=== PATIENT | female | born 1945 | race Caucasian/White ===

== ENCOUNTER → 2016-11-16 | Outpatient (CLI) | payer MEDICARE, OTHER | END | disposition home or self-care (01) | LOC: GMAL 12:48 | PROVIDERS: ATTEND Family Medicine | DX: D51.3 Other dietary vitamin B12 deficiency anemia (principal); D53.9 Nutritional anemia, unspecified; R53.83 Other fatigue; E55.9 Vitamin D deficiency, unspecified ==

== ENCOUNTER 2017-01-23 05:56 | Day surgery (SDC) | payer MEDICARE, OTHER ==
[~2017-01-23 05:56] MED LIST: LACTATED RINGERS 1,000 ML ONE
--- NOTE | 2017-01-23 10:17 | OP ---
DATE OF PROCEDURE: 01/23/17 PREPROCEDURE DIAGNOSIS: 1. Iron deficiency anemia. POSTPROCEDURE DIAGNOSIS: 1. Diverticulosis. PROCEDURE: 1. Colonoscopy. SURGEON: Migel Vazquez MD. SEDATION: Monitored anesthesia care. ESTIMATED BLOOD LOSS: 0 mL. PROCEDURE: Informed consent was obtained prior to sedation. The preprocedure cardiopulmonary assessment was satisfactory. The patient was brought to the Endoscopy Suite and placed in the left lateral decubitus position. She was then sedated by the anesthesia team. Digital rectal exam revealed no abnormalities. The tip of the Olympus colonoscope was inserted into the rectum and advanced under direct visualization to the terminal ileum. The cecum was identified by the presence of the appendiceal orifice and ileocecal valve. Preparation of the colon was excellent. Upon reaching the terminal ileum, the colonoscope was slowly withdrawn from the patient with careful attention paid to the entire colonic mucosa for the identification of any small polyps or flat vascular lesions. The only notable finding in the colon was diverticulosis in the sigmoid colon. The endoscopic was withdrawn to the rectum where a retroflexed view of the anal verge revealed no abnormalities. The endoscope was then withdrawn from the patient and the procedure terminated. RECOMMENDATION: 1. Discharge the patient home with escort. 2. Resume regular activities and normal diet. 3. Continue all present medications. 4. Consider repeat screening colonoscopy in 10 years' time. 5. Followup in my office as needed. #[id number] MTDD
[2017-01-23 11:37] VITALS: O2SAT 98
[2017-01-23 11:42] VITALS: BP 82/46; TEMP 97
[2017-01-23] MEDS ORDERED: PROPOFOL 200 MG/20 ML VIAL IV ONE (12:00)
== END 2017-01-23 11:52 | disposition home or self-care (01) ==
LOC: AMB 05:56
PROVIDERS: ATTEND Internal Medicine Gastroenterology
DX: D50.9 Iron deficiency anemia, unspecified (principal); K57.30 Diverticulosis of large intestine without perforation or abscess without bleeding; I10 Essential (primary) hypertension; M85.80 Other specified disorders of bone density and structure, unspecified site; Z79.899 Other long term (current) drug therapy
CPT/HCPCS: 00810; 45378; J3490; J7120

== ENCOUNTER → 2017-02-04 | Outpatient (CLI) | payer MEDICARE, OTHER ==
--- NOTE | 2017-02-04 15:39 | MAM ---
History: Well woman exam. Date of exam: 02/04/2017 Services provided: Bilateral full field digital screening mammography. CAD, the images were reviewed with R2 computer aided detection. FINDINGS: Glandular tissue is scattered glandular contour with increased mammographic density. Bilateral subglandular implants with fairly extensive capsular calcification. Comparison with 2012 exam. No dominant mass, architectural distortion or clustered microcalcification. IMPRESSION: Benign exam Recommendation: Routine annual mammography BIRAD CATEGORY: 2 BENIGN Electronically signed by: Swapna Fish MD 02/04/2017 3:33 PM CDT
== END | disposition home or self-care (01) ==
LOC: MAMMO 13:06
PROVIDERS: ATTEND Family Medicine
DX: Z12.31 Encounter for screening mammogram for malignant neoplasm of breast (principal)

== ENCOUNTER → 2017-02-20 | Outpatient (CLI) | payer MEDICARE, OTHER | END | disposition home or self-care (01) | LOC: GMAL 17:39 | PROVIDERS: ATTEND Family Medicine | DX: D51.3 Other dietary vitamin B12 deficiency anemia (principal); D53.9 Nutritional anemia, unspecified ==

== ENCOUNTER → 2017-03-06 | Outpatient (CLI) | payer MEDICARE, OTHER | END | disposition home or self-care (01) | LOC: GMA 18:03 | PROVIDERS: ATTEND Nurse Practitioner Family | DX: N30.00 Acute cystitis without hematuria (principal) ==

== ENCOUNTER → 2017-08-21 | Outpatient (CLI) | payer MEDICARE, OTHER | END | disposition home or self-care (01) | LOC: GMAL 14:29 | PROVIDERS: ATTEND Family Medicine | DX: D51.3 Other dietary vitamin B12 deficiency anemia (principal); E55.9 Vitamin D deficiency, unspecified; D53.9 Nutritional anemia, unspecified ==

== ENCOUNTER → 2017-09-02 | Outpatient (CLI) | payer MEDICARE, OTHER | END | disposition home or self-care (01) | LOC: GMA 16:49 | PROVIDERS: ATTEND Physician Assistant | DX: N30.00 Acute cystitis without hematuria (principal) ==

== ENCOUNTER → 2018-02-18 | Outpatient (CLI) | payer MEDICARE, OTHER ==
--- NOTE | 2018-02-20 10:12 | MAM ---
EXAM DESCRIPTION: 3D Screening BILATERAL : Digital Mammography. CLINICAL HISTORY: 73 years Female SCREENING . No complaints. No family history breast cancer. Postmenopausal. Has taken HRT 5 or more years ago. Bilateral breast augmentation.. COMPARISON: 2-D digital screening bilateral study 01/17/2016.. Report from prior examination also reviewed. TECHNIQUE: Bilateral CC and MLO projection full-field images, with Letha Implant Displacement 3-D tomosynthesis digital mammographic technique. Also bilateral synthesized CC/ MLO full-field images. Also with Letha Implant Displacement, CAD not utilized. Bilateral 2-D digital full-field images, MLO and CC projections, non-displaced, with CAD. FINDINGS: The breast parenchymal density pattern is: Heterogeneously dense breast tissue, which may obscure small masses. No skin thickening or nipple retraction bilateral coarse calcifications. Bilateral microcalcifications. Minimal nipple inversion. Vascular calcifications in the right breast. Bilateral retroglandular silicone implants with partially calcified capsules. No focal, stellate mass or density, focal asymmetry , and no suspicious microcalcifications bilaterally. Stable mammograms compared to prior study, taking into account differences in mammographic technique IMPRESSION: BI-RADS CATEGORY: 2 - BENIGN FINDINGS. FOLLOW UP: Routine digital bilateral screening, one year interval from February 2018. Written communication explaining the IMPRESSION and follow-up, will be mailed to the patient and referring health care provider. According to the [employer], yearly mammograms are recommended starting at age 40 and continuing as long as a woman is in good health. Any breast change noted on a breast self-exam should be reported promptly to the patient's healthcare provider. Breast MRI is recommended for women with an approximately 20-25% or greater lifetime risk of breast cancer, including women with a strong family history of breast or ovarian cancer and women who have been treated for Hodgkin's disease. A negative mammographic report should not delay tissue diagnosis in patients with significant clinical history or physical findings. Extremely dense breast tissue limits the sensitivity of digital mammography. Electronically signed by: Kurt Strong MD 02/20/2018 10:10 AM CDT
== END ==
LOC: MAMMO 14:29
PROVIDERS: ATTEND Family Medicine
DX: Z12.31 Encounter for screening mammogram for malignant neoplasm of breast (principal)

== ENCOUNTER → 2018-07-09 | Outpatient (CLI) | payer MEDICARE, OTHER | LOC: GMAL 15:05 | PROVIDERS: ATTEND Family Medicine | DX: D51.3 Other dietary vitamin B12 deficiency anemia (principal); R41.81 Age-related cognitive decline ==

== ENCOUNTER → 2018-07-14 | Outpatient (CLI) | payer MEDICARE, OTHER ==
--- NOTE | 2018-07-14 16:50 | MRI ---
EXAM DESCRIPTION: Brain w/o Contrast: MRI. CLINICAL HISTORY: MEMORY LOSS COMPARISON: None. TECHNIQUE: Multiplanar, high-field MRI unit, multiple diffusion sequences, multiple conventional sequences without contrast. FINDINGS: Bilateral small foci of hyperintense FLAIR and T2-weighted signal in the subcortical lion-white matter junctions of the cerebral hemispheres. Single hyperintense focus in the periventricular posterior left occipital lobe. . No hemorrhage, no cerebral edema, no mass-effect, no diffusion restriction. Similar hyperintense signal in the anterior left basal ganglia. Normal signal in the brainstem and cerebellar hemispheres. No hemorrhage, no cerebral edema, no mass-effect, and no diffusion restriction. Concordance of the diffusion and non-diffusion sequences with no diffusion restriction. Cortical sulci, ventricles, and other CSF spaces, and the subdural spaces are normally configured for the patient's age. No effacement or displacement. No midline shift. No extra-axial hemorrhage. Normal flow signal void in the major vessels of the quinault Chávez, and the venous sinuses. IACs are symmetric bilaterally. Normal signal in the bilateral mastoid air cells. No mass effect in the bilateral cerebellopontine angles. Pituitary gland occupies only the base of the sella. Minimal T2 fluid signal in the distal bilateral optic nerve sheaths. Base of the cerebellar tonsils is above the foramen magnum. Minimal mucoperiosteal thickening in the paranasal sinuses. The bony calvarium is intact. IMPRESSION: 1. Bilateral multiple foci of abnormal white matter signal in the subcortical lion-white matter junctions which is most likely related to aging and cerebral microvascular disease. Also a single focus in the posterior left parietal lobe abutting the ventricle. These white matter lesions are not associated with hemorrhage or diffusion restriction. 2. Normal noncontrast MRI diffusion study indicating no evidence of acute or subacute infarction. 3. Small sella and possible edema in the distal optic nerve sheaths can be associated with pseudotumor cerebri. Electronically signed by: Kurt Strong MD 07/14/2018 4:49 PM CDT
== END ==
LOC: MRI 14:00
PROVIDERS: ATTEND Family Medicine
DX: R41.81 Age-related cognitive decline (principal)

== ENCOUNTER → 2019-02-19 | Outpatient (CLI) | payer MEDICARE, OTHER ==
--- NOTE | 2019-02-25 14:12 | MAM ---
EXAM DESCRIPTION: 3D Screening BILATERAL : Digital Mammography. CLINICAL HISTORY: 74 years Female SCREENING . No complaints. No personal or family history of breast cancer. Childbirth. Postmenopausal 25 years. HRT 5 or more years ago. Bilateral breast augmentation. Lifetime risk of developing breast cancer (Tyrer-Cuzick model)(%): 3.7. COMPARISON: Bilateral screening digital breast tomosynthesis with Letha implant displacement technique 02/18/2018.. TECHNIQUE: Bilateral CC and MLO projection full-field images, with Letha Implant Displacement digital tomosynthesis mammographic technique. Bilateral 2-D digital full-field images, MLO and CC projections, non-displaced. CAD Bilateral digital 2-D full-field MLO images, implant displaced. CAD not available for tomosynthesis or 2-D images. FINDINGS: The breast parenchymal density pattern is: Heterogeneously dense breast tissue, which may obscure small masses. No skin thickening on the right than the left.. Right inverted nipple. No skin thickening and nipple inversion stable since the prior study. Bilateral solitary microcalcifications more on the left. Right axillary lymph node. No new focal, stellate mass or density, focal asymmetry , and no suspicious microcalcifications bilaterally. Stable mammograms compared to prior study. IMPRESSION: Benign exam. BIRAD CATEGORY: 2 BENIGN FINDINGS. RECOMMENDATIONS: FOLLOW UP: Routine digital bilateral mammographic screening, one year interval from February 2019. Written communication explaining the IMPRESSION and follow-up, will be mailed to the patient and referring health care provider. According to the [employer], yearly mammograms are recommended starting at age 40 and continuing as long as a woman is in good health. Any breast change noted on a breast self-exam should be reported promptly to the patient's healthcare provider. Breast MRI is recommended for women with an approximately 20-25% or greater lifetime risk of breast cancer, including women with a strong family history of breast or ovarian cancer and women who have been treated for Hodgkin's disease. A negative mammographic report should not delay tissue diagnosis in patients with significant clinical history or physical findings. Extremely dense breast tissue limits the sensitivity of digital mammography. Electronically signed by: Kurt Strong MD 02/25/2019 2:10 PM CDT
== END ==
LOC: MAMMO 14:00
PROVIDERS: ATTEND Family Medicine
DX: Z12.31 Encounter for screening mammogram for malignant neoplasm of breast (principal)

== ENCOUNTER → 2019-07-15 | Outpatient (CLI) | payer MEDICARE, OTHER | LOC: GMAL 11:26 | PROVIDERS: ATTEND Family Medicine | DX: D51.3 Other dietary vitamin B12 deficiency anemia (principal); R53.83 Other fatigue; E55.9 Vitamin D deficiency, unspecified; I10 Essential (primary) hypertension; E78.49 Other hyperlipidemia ==

== ENCOUNTER 2020-03-17 11:04 | Emergency (ER) | payer MEDICARE, OTHER ==
--- NOTE | 2020-03-17 11:18 | ED.PDOC ---
History of Present Illness - General Chief Complaint: Neuro Symptoms/Deficits Stated Complaint: poss TIA Time Seen by Provider: 03/17/20 11:16 Source: patient Exam Limitations: no limitations - History of Present Illness Initial Comments: 75 yo F who was brought in by EMS after friend stated she was acting differently on the phone and called EMS. EMS was unable to get pt to answer the door and they had to have son come let them in. When hearing this the pt states "this all happened this morning?" EMS found pt sleeping on the couch but she upon waking her up she was alert, oriented, without complaints. Pt states she feels fine, she remembers talking on the phone with her friend and was doing her hair this morning. She states she normally does not take naps in the morning and is confused by the situation. States she takes Ambien nightly, denies taking too many on accident or intentionally. 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 Hx of infarcts, states she has an outpt MRI tomorrow as her and her doctor think they are getting worse because she is "fuzzy" a lot of the times. Denies f/c, cough, congestion, CP, SOB, COVID exposure, body aches, CP, SOB, abd pain, n/v/d, DIAZ, change in vision, weakness, numbness, fall, trauma, pain. Allergies/Adverse Reactions: Allergies NO KNOWN ALLERGY Allergy (Verified 03/17/20 11:24) Home Medications: Ambulatory Orders Cefdinir [Omnicef] 300 mg PO BID #20 cap 03/17/20 Review of Systems - Review of Systems Constitutional: Denies: chills, fever EENTM: Denies: blurred vision, double vision, nose congestion, throat pain Respiratory: Denies: cough, orthopnea, short of breath, stridor, wheezing Cardiology: Denies: chest pain, edema, palpitations, syncope Gastrointestinal/Abdominal: Denies: abdominal pain, constipation, diarrhea, nausea, vomiting Genitourinary: Denies: dysuria, frequency, hematuria Musculoskeletal: Denies: back pain, neck pain Skin: Denies: lesions, rash Neurological: Denies: headache, numbness, weakness Endocrine: Denies: increased thirst, increased urine Hematologic/Lymphatic: Denies: easy bleeding, easy bruising Past Medical History (General) - Patient Medical History Hx Congestive Heart Failure: No Hx Diabetes: No Hx MRSA: No Family Medical History - Family History Mother Family History: Unknown Living Status: Physical Exam - Physical Exam General Appearance: Alert, Comfortable, No apparent distress, Well Developed, Well Groomed, Well Nourished Eye Exam: bilateral other - PERRLA, pupils 1mm bilaterally, EOMI ENT Exam: normal ENT inspection, hearing grossly normal, TMs normal, pharynx normal Neck: non-tender, full range of motion, supple, normal inspection, trachea midline Respiratory: chest non-tender, lungs clear, normal breath sounds, no respiratory distress, no accessory muscle use Cardiovascular/Chest: normal peripheral pulses, regular rate, rhythm, no edema, no gallop, no JVD, no murmur Peripheral Pulses: radial,right: 2+, radial,left: 2+ Gastrointestinal/Abdominal: non tender, soft, no organomegaly Extremities Exam: non-tender, normal range of motion, no evidence of injury, no edema 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 Activase not given because of low NIH, unknown last known normal. 03/17/20 12:30 Son now at bedside, states his brother went through pt's medication box and believes she accidentally took her nightly medication (including ambien and ativan), this am. Pt is well appearing, pupils 3mm. 03/17/20 13:33 I have explained and reviewed all results with the pt and son. Pt is asymptomatic, walking with steady gait. Offered transfer for MRI and further neurological workup, family and pt declined, suspect low risk for anything neurological and clinically sx appears consistent with medication mixup. Does endorse urinary frequency yesterday now after discussing UTI on UA, denies other urinary sx. I explained that emergent conditions may arise and to return to the ER for new, worsening, or any persistent conditions. I've explained the importance of f/u for recheck. Explained importance of following through with her appointment for MRI tomorrow. All questions and concerns addressed at this time. Pt understands and agrees with plan. Pt well appearing, NAD, is stable for discharge. Sonali Ortiz MD Emergency Medicine Physician Billing Number [id number] - Results/Orders Results/Orders: 03/17/20 11:16 IV Care:Saline Lock per Protoc QSHIFT Telemetry .ONCE Sodium Chloride 0.9% (Flush) [Saline Flush Syringe] 10 ml IV PRN PRN 03/17/20 11:30 EKG STAT 03/17/20 11:50 Urine Culture Stat Laboratory Results - last 24 hr 03/17/20 03/17/20 03/17/20 11:30 11:30 11:30 WBC 4.8 RBC 3.98 L Hgb 12.0 Hct 36.3 MCV 91.3 MCH 30.3 MCHC 33.2 RDW 13.3 Plt Count 198 MPV 9.7 Absolute Neuts (auto) 2.90 Absolute Lymphs (auto) 1.00 Absolute Monos (auto) 0.60 Absolute Eos (auto) 0.20 Absolute Basos (auto) 0.00 Neutrophils % 61.3 Lymphocytes % 21.8 Monocytes % 11.7 H Eosinophils % 4.3 Basophils % 0.9 PT 10.4 INR 1.05 PTT (SP) 23.3 Sodium 140 Potassium 3.9 Chloride 109 Carbon Dioxide 27 Anion Gap 7.9 L BUN 16 Creatinine 0.73 BUN/Creatinine Ratio 21.9 H POC Glucose Random Glucose 84 Serum Osmolality 279.8 Calcium 8.4 Total Bilirubin 0.5 AST 22 ALT 14 Alkaline Phosphatase 71 Troponin I Serum Total Protein 6.0 L Albumin 3.5 Globulin 2.5 Albumin/Globulin Ratio 1.4 Urine Color Urine Appearance Urine pH Ur Specific Bradley Urine Protein Urine Glucose (UA) Urine Ketones Urine Blood Urine Nitrite Urine Bilirubin Urine Urobilinogen Ur Leukocyte Esterase Urine RBC Urine WBC Ur Epithelial Cells Urine Bacteria Urine Mucus Urine Opiates Screen Urine Barbiturates Ur Phencyclidine Scrn U Amphetamin/Meth Scrn U Benzodiazepines Scrn U Cocaine Metab Screen U Cannabinoids Screen Ethyl Alcohol 03/17/20 03/17/20 03/17/20 11:30 11:30 11:30 WBC RBC Hgb Hct MCV MCH MCHC RDW Plt Count MPV Absolute Neuts (auto) Absolute Lymphs (auto) Absolute Monos (auto) Absolute Eos (auto) Absolute Basos (auto) Neutrophils % Lymphocytes % Monocytes % Eosinophils % Basophils % PT INR PTT (SP) Sodium Potassium Chloride Carbon Dioxide Anion Gap BUN Creatinine BUN/Creatinine Ratio POC Glucose 83 Random Glucose Serum Osmolality Calcium Total Bilirubin AST ALT Alkaline Phosphatase Troponin I < 0.02 Serum Total Protein Albumin Globulin Albumin/Globulin Ratio Urine Color Urine Appearance Urine pH Ur Specific Bradley Urine Protein Urine Glucose (UA) Urine Ketones Urine Blood Urine Nitrite Urine Bilirubin Urine Urobilinogen Ur Leukocyte Esterase Urine RBC Urine WBC Ur Epithelial Cells Urine Bacteria Urine Mucus Urine Opiates Screen Urine Barbiturates Ur Phencyclidine Scrn U Amphetamin/Meth Scrn U Benzodiazepines Scrn U Cocaine Metab Screen U Cannabinoids Screen Ethyl Alcohol < 5.40 03/17/20 03/17/20 11:50 11:50 WBC RBC Hgb Hct MCV MCH MCHC RDW Plt Count MPV Absolute Neuts (auto) Absolute Lymphs (auto) Absolute Monos (auto) Absolute Eos (auto) Absolute Basos (auto) Neutrophils % Lymphocytes % Monocytes % Eosinophils % Basophils % PT INR PTT (SP) Sodium Potassium Chloride Carbon Dioxide Anion Gap BUN Creatinine BUN/Creatinine Ratio POC Glucose Random Glucose Serum Osmolality Calcium Total Bilirubin AST ALT Alkaline Phosphatase Troponin I Serum Total Protein Albumin Globulin Albumin/Globulin Ratio Urine Color Yellow Urine Appearance Sl cloudy Urine pH 7.0 Ur Specific Bradley 1.015 Urine Protein Negative Urine Glucose (UA) Negative Urine Ketones Negative Urine Blood Small H Urine Nitrite Positive H Urine Bilirubin Negative Urine Urobilinogen 0.2 Ur Leukocyte Esterase Moderate H Urine RBC 0-1 Urine WBC 5-10 H Ur Epithelial Cells 0 Urine Bacteria 4+ H Urine Mucus Trace Urine Opiates Screen Negative Urine Barbiturates Negative Ur Phencyclidine Scrn Negative U Amphetamin/Meth Scrn Negative U Benzodiazepines Scrn Negative U Cocaine Metab Screen Negative U Cannabinoids Screen Negative Ethyl Alcohol CT head: EXAM DESCRIPTION: CT Head without contrast CLINICAL HISTORY: CVA COMPARISON: Previous MRI of the brain July 14, 2018 canal in the TECHNIQUE: Noncontrast head CT was performed with routine protocol. FINDINGS: Normal lion-white matter differentiation. Ventricles and sulci are normal for age. No high density hemorrhage, focal edema or shift of the midline. No sulcal effacement. Normal orbital contents. Basilar cisterns appear clear. Intact calvarium with no fracture or lytic lesion. Median basal canal of the clivus incidentally noted (normal variant). Normal aeration of tympanic cavities and mastoid air cells. No fluid levels in the paranasal sinuses. Skull base appears intact. Symmetrical internal auditory canals. IMPRESSION: No acute intracranial pathologic process. This exam was performed according to our departmental dose- optimization program, which includes automated exposure control, adjustment of the mA and/or kV according to patient size and/or use of iterative reconstruction technique. Total DLP equals 752.48 mGycm. Electronically signed by: Landry Valiente MD 03/17/2020 12:04 PM CDT CTA head/neck: EXAM DESCRIPTION: CTA Neck (accession [id number]), CTA Head (accession [id number]) CLINICAL HISTORY: 75 years Female, CVA COMPARISON: CT head 03/17/2020.. TECHNIQUE: CTA of the head and neck performed after bolus administration of intravenous contrast. Axial pre-and postcontrast images of the brain, CTA source images, multi-planar reformats acquired. This examination was performed according to a CT angiographic (CTA) protocol with 3D post-processing. This involves 3D reconstructions, MIPS, volume rendered images and/or shaded surface rendering. This exam was performed according to our departmental dose- optimization program, which includes automated exposure control, adjustment of the mA and/or kV according to patient size and/or use of iterative reconstructio n technique. CTA HEAD FINDINGS: Anterior circulation: Unremarkable visualized portions of the internal carotid arteries. Patent anterior and middle cerebral arteries without stenosis, filling defect, or aneurysm. Posterior circulation: origin of the left posterior cerebral artery, a normal variant. The visualized distal vertebral arteries are patent to the vertebrobasilar junction. Patent basilar and posterior cerebral arteries without stenosis, filling defect, or aneurysm. Visualized dural venous sinuses: Patent. Other findings: None. CTA NECK FINDINGS: Cervical-cerebral arch: Mild atherosclerosis within the aortic arch. Conventional branching of the aortic arch. Patent origins of the great vessels and visualized subclavian arteries. Right carotid system: Normal without significant atherosclerosis. The estimated internal carotid stenosis by NASCET criteria is 0%. Left carotid system: Normal without significant atherosclerosis. The estimated internal carotid stenosis by NASCET criteria is 0%. Vertebral arteries: Patent vertebral arteries and its origins. Musculoskeletal: No acute fracture or aggressive appearing osseous lesion. Soft tissues unremarkable. Other findings: 9 mm hypodense left thyroid nodule. No dedicated imaging follow-up recommended. It IMPRESSION: 1. No acute abnormality of the CTA of the head and neck. 2. origin left posterior cerebral artery, a normal variant. COMMENT: All internal carotid artery stenoses are calculated based on NASCET criteria. Electronically signed by: Nabil Ramsey MD 03/17/2020 1:12 PM CDT Vital Signs - 24 hr 03/17/20 03/17/20 03/17/20 11:18 12:00 13:00 Temperature 97.8 F 97.9 F 97.9 F Pulse Rate [ 58 L 55 L 57 L MONITOR] Respiratory 18 20 18 Rate Blood Pressure 135/71 135/45 132/57 [Left Arm] O2 Sat by Pulse 97 93 L 97 Oximetry - EKG/XRAY/CT EKG: Donell Comments: Rate of 51, T wave inversion III, normal ST Departure - Departure Clinical Impression: Acute cystitis without hematuria Time of Disposition: 13:32 Disposition: Discharge to Home or Self Care Health Concerns: condition: stable Departure Forms: ED Discharge - Pt. Copy, Patient Portal Self Enrollment Instructions: Urinary Tract Infection, Adult (DC) Referrals: Brayden Motley III, MD [Primary Care Provider] - 1-5 Days Prescriptions: Cefdinir [Omnicef] 300 mg PO BID #20 cap Home Medications: Ambulatory Orders Cefdinir [Omnicef] 300 mg PO BID #20 cap 03/17/20 Additional Instructions: Follow up: [facility] As needed, if symptoms worsen
[2020-03-17 11:24] VITALS: O2SAT 97
--- NOTE | 2020-03-17 11:53 | RAD ---
EXAM DESCRIPTION: Chest,1 View CLINICAL HISTORY: 75 years Female, CVA COMPARISON: None available. TECHNIQUE: AP radiograph of the chest was obtained. FINDINGS: Trachea is midline.The cardiomediastinal silhouette is normal in size. The pulmonary vasculature is within normal limits.The lungs are clear with no acute consolidation.No evidence of pleural effusions. IMPRESSION: No acute cardiopulmonary process. Electronically signed by: Acacia Lerma MD 03/17/2020 11:52 AM CDT
--- NOTE | 2020-03-17 12:06 | CT ---
EXAM DESCRIPTION: CT Head without contrast CLINICAL HISTORY: CVA COMPARISON: Previous MRI of the brain July 14, 2018 canal in the TECHNIQUE: Noncontrast head CT was performed with routine protocol. FINDINGS: Normal lion-white matter differentiation. Ventricles and sulci are normal for age. No high density hemorrhage, focal edema or shift of the midline. No sulcal effacement. Normal orbital contents. Basilar cisterns appear clear. Intact calvarium with no fracture or lytic lesion. Median basal canal of the clivus incidentally noted (normal variant). Normal aeration of tympanic cavities and mastoid air cells. No fluid levels in the paranasal sinuses. Skull base appears intact. Symmetrical internal auditory canals. IMPRESSION: No acute intracranial pathologic process. This exam was performed according to our departmental dose-optimization program, which includes automated exposure control, adjustment of the mA and/or kV according to patient size and/or use of iterative reconstruction technique. Total DLP equals 752.48 mGycm. Electronically signed by: Landry Valiente MD 03/17/2020 12:04 PM CDT
[2020-03-17] MEDS: cefTRIAXone SODIUM 1 GM in SODIUM CHL 0.9% 50ML MIN-BAG+ 50 ML IVPB ONE (12:51)
[2020-03-17] MEDS: SODIUM CHLORIDE 0.9% (FLUSH) 10 ML SYG IV PRN (12:51)
[2020-03-17 13:05] VITALS: BP 132/57
--- NOTE | 2020-03-17 13:13 | CT ---
EXAM DESCRIPTION: CTA Neck (accession [id number]), CTA Head (accession [id number]) CLINICAL HISTORY: 75 years Female, CVA COMPARISON: CT head 03/17/2020.. TECHNIQUE: CTA of the head and neck performed after bolus administration of intravenous contrast. Axial pre-and postcontrast images of the brain, CTA source images, multi-planar reformats acquired. This examination was performed according to a CT angiographic (CTA) protocol with 3D post-processing. This involves 3D reconstructions, MIPS, volume rendered images and/or shaded surface rendering. This exam was performed according to our departmental dose-optimization program, which includes automated exposure control, adjustment of the mA and/or kV according to patient size and/or use of iterative reconstruction technique. CTA HEAD FINDINGS: Anterior circulation: Unremarkable visualized portions of the internal carotid arteries. Patent anterior and middle cerebral arteries without stenosis, filling defect, or aneurysm. Posterior circulation: origin of the left posterior cerebral artery, a normal variant. The visualized distal vertebral arteries are patent to the vertebrobasilar junction. Patent basilar and posterior cerebral arteries without stenosis, filling defect, or aneurysm. Visualized dural venous sinuses: Patent. Other findings: None. CTA NECK FINDINGS: Cervical-cerebral arch: Mild atherosclerosis within the aortic arch. Conventional branching of the aortic arch. Patent origins of the great vessels and visualized subclavian arteries. Right carotid system: Normal without significant atherosclerosis. The estimated internal carotid stenosis by NASCET criteria is 0%. Left carotid system: Normal without significant atherosclerosis. The estimated internal carotid stenosis by NASCET criteria is 0%. Vertebral arteries: Patent vertebral arteries and its origins. Musculoskeletal: No acute fracture or aggressive appearing osseous lesion. Soft tissues unremarkable. Other findings: 9 mm hypodense left thyroid nodule. No dedicated imaging follow-up recommended. It IMPRESSION: 1. No acute abnormality of the CTA of the head and neck. 2. origin left posterior cerebral artery, a normal variant. COMMENT: All internal carotid artery stenoses are calculated based on NASCET criteria. Electronically signed by: Nabil Ramsey MD 03/17/2020 1:12 PM CDT
[2020-03-17 13:44] VITALS: TEMP 97.8
== END 2020-03-17 13:40 | disposition home or self-care (01) ==
LOC: ER 11:04
DX: N30.01 Acute cystitis with hematuria (principal)
CPT/HCPCS: 36415; 70450; 70496; 70498; 71045; 80053; 80307; 80320; 81001; 82948; 84484; 85025; 85610; 85730; 87086; 93005; A4216; J0696; J7050

== ENCOUNTER → 2020-03-18 | Outpatient (CLI) | payer MEDICARE, OTHER ==
--- NOTE | 2020-03-19 18:28 | MRI ---
EXAM DESCRIPTION: Brain w/o Contrast: MRI. CLINICAL HISTORY: TINNITUS BILATERAL COMPARISON: MRI scan of the brain without contrast July 2018. TECHNIQUE: Multiplanar, high-field MRI unit, multiple diffusion sequences, multiple conventional sequences without contrast. FINDINGS: Bilateral foci of hyperintense hyperintense FLAIR and T2-weighted signal in the periventricular white matter of the left parietal lobe, periventricular white matter of the posterior bilateral frontal lobes in the subcortical white matter of the inferior left frontal lobe medial to the left sylvian fissure. No lesions are less distinct as on the prior study and there are no new white matter lesions.. No hemorrhage, no cerebral edema, no midline shift.. Normal signal in the bilateral basal ganglia. Normal signal in the brainstem and cerebellar hemispheres. Concordance of the diffusion and non-diffusion sequences with no diffusion restriction. Cortical sulci, ventricles, and other CSF spaces, and the subdural spaces are normally configured with minimal bilateral symmetric prominence of the bodies of the lateral ventricles. No interval change.. No effacement or displacement. No midline shift. No extra-axial hemorrhage. Normal flow signal void in the major vessels of the [place], and the venous sinuses. IACs are symmetric bilaterally. Normal signal in the bilateral mastoid air cells. No mass effect in the bilateral cerebellopontine angles. Pituitary gland occupies only the base of the sella. Stable from the prior study. Base of the cerebellar tonsils is at the level of the foramen magnum. No significant abnormalities in the. The bony calvarium is intact. IMPRESSION: Bilateral focal white matter lesions are less distinct compared to the prior study with no new lesions. No hemorrhage, no mass effect, no midline shift, no cerebral edema. Normal noncontrast diffusion study with no evidence of significant ischemia or acute or subacute infarction. Stable small pituitary gland. Stable mild dilation of the ventricular bodies bilaterally. Electronically signed by: Kurt Strong MD 03/19/2020 6:26 PM CDT
== END ==
LOC: MRI 13:00
PROVIDERS: ATTEND Family Medicine
DX: H93.13 Tinnitus, bilateral (principal); R90.82 White matter disease, unspecified; G93.89 Other specified disorders of brain; E23.6 Other disorders of pituitary gland

== ENCOUNTER → 2020-05-04 | Outpatient (CLI) | payer MEDICARE, OTHER ==
--- NOTE | 2020-05-05 17:09 | MAM ---
EXAM DESCRIPTION: 3D Screening BILATERAL : Digital Mammography. CLINICAL HISTORY: 75 years Female SCREENING no complaints. Bilateral breast augmentation. Menarche age 12. Childbirth age 20. Menopause age unknown. No HRT. Lifetime risk of developing breast cancer (Tyrer-Cuzick model)(%): 3.4. COMPARISON: Bilateral screening digital breast tomosynthesis February 2019 and February 2018. No prior reports available. TECHNIQUE: Bilateral CC and MLO projection full-field images, with [employer] Displacement digital tomosynthesis mammographic technique. Bilateral 2-D digital full-field images, MLO and CC projections, non-displaced. Bilateral digital 2-D full-field MLO images. [employer] CAD available for 2-D images. FINDINGS: The breast parenchymal density pattern is: Heterogeneously dense breast tissue, which may obscure small masses. No skin thickening or nipple retraction. Left breast. Anterior skin thickening and nipple retraction right breast. Solitary microcalcifications. Coarse calcification anterior left breast. Bilateral retroglandular implants. Minimal irregularity of the capsules. No definite leakage or deformity. No new focal, stellate mass or density, focal asymmetry , and no suspicious microcalcifications bilaterally. Stable mammograms compared to prior study. IMPRESSION: Benign exam. BIRAD CATEGORY: 2 BENIGN FINDINGS. RECOMMENDATIONS: FOLLOW UP: Routine digital bilateral mammographic screening, one year interval from April 2020. Written communication explaining the IMPRESSION and follow-up, will be mailed to the patient and referring health care provider. According to the [employer], yearly mammograms are recommended starting at age 40 and continuing as long as a woman is in good health. Any breast change noted on a breast self-exam should be reported promptly to the patient's healthcare provider. Breast MRI is recommended for women with an approximately 20-25% or greater lifetime risk of breast cancer, including women with a strong family history of breast or ovarian cancer and women who have been treated for Hodgkin's disease. A negative mammographic report should not delay tissue diagnosis in patients with significant clinical history or physical findings. Extremely dense breast tissue limits the sensitivity of digital mammography. Electronically signed by: Kurt Strong MD 05/05/2020 5:08 PM CDT
== END ==
LOC: MAMMO 14:00
PROVIDERS: ATTEND Family Medicine
DX: Z12.31 Encounter for screening mammogram for malignant neoplasm of breast (principal)

== ENCOUNTER → 2020-07-26 | Outpatient (CLI) | payer MEDICARE, OTHER | LOC: GMAL 11:27 | PROVIDERS: ATTEND Family Medicine | DX: R53.83 Other fatigue (principal); E78.49 Other hyperlipidemia; Z79.899 Other long term (current) drug therapy ==